=== PATIENT | male | born 1990 | race Caucasian/White ===

== ENCOUNTER 2021-06-30 16:34 | Emergency (ER) | payer BC, OTHER ==
[2021-06-30] MEDS ORDERED: DEXAMETHASONE SOD PHOSPHATE 10 MG/1 ML VIAL IM ONE (16:37)
[2021-06-30] MEDS ORDERED: DEXAMETHASONE SOD PHOSPHATE 10 MG/1 ML VIAL ONE (16:39)
[2021-06-30 17:05] VITALS: BP 130/80; PULSE 112; TEMP 100.9; BMI 23.1
== END 2021-06-30 17:10 | disposition home or self-care (01) ==
LOC: FER 16:34
PROC: 3E023NZ Introduction of Analgesics, Hypnotics, Sedatives into Muscle, Percutaneous Approach (ICD-10-PCS; principal; 2021-06-30)
DX: J02.9 Acute pharyngitis, unspecified (principal); R50.9 Fever, unspecified; R05.9 Cough, unspecified
CPT/HCPCS: 87804; 99284-25; C9803; J1100; U0003; U0005